=== PATIENT | female | born 2000 | race Caucasian/White ===

== ENCOUNTER 2022-10-15 10:41 | Outpatient (CLI) | payer BC, SELFPAY ==
[2022-10-15 12:07] LABS: Cholesterol* 139 mg/dL (90-199); Glucose* 84 mg/dL (60-115); HDL Cholesterol* 45 mg/dL (>=50); LDL Cholesterol Calculated 79 mg/dL (<100); Triglycerides* 77 mg/dL (40-149)
[2022-10-15 14:01] LABS: Chlamydia DNA Amplified* NOT DETECTED (No Detected); GC DNA Amplified* NOT DETECTED (No Detected)
== END 2022-10-15 10:42 | disposition home or self-care (01) ==
PROVIDERS: PCP Family Medicine; Visit Provider Physician Assistant
DX: Z11.3 Encounter for screening for infections with a predominantly sexual mode of transmission (principal); Z13.1 Encounter for screening for diabetes mellitus; Z13.6 Encounter for screening for cardiovascular disorders
CPT/HCPCS: 80061; 82947; 87491; 87591

== ENCOUNTER 2022-10-21 13:47 | Outpatient (CLI) | payer BC, SELFPAY ==
--- NOTE | 2022-10-21 14:00 | CRLHL7_ITS ---
For Patients: As a result of the Century Cures Act, medical imaging exams and procedure reports are released immediately into your electronic medical record. You may view this report before your referring provider. If you have questions, please contact your health care provider. INDICATION: Pelvic cramping. IUD placement. Assess for intrauterine device location. TECHNIQUE: Transabdominal and transvaginal pelvic ultrasound. FINDINGS: The uterus is anteverted. There is an intrauterine device appropriately positioned. The uterus measures 7.7 x 3.6 x 4.9 cm. The endometrial stripe measures 4 mm transvaginally. Small amount of free pelvic fluid likely physiologic. Normal right ovary measuring 3.8 x 1.9 x 2.1 cm. Normal left ovary measuring 3.4 x 2.2 x 2.5 cm. IMPRESSION: Intrauterine device appropriately positioned. Endometrial stripe of 4 mm. Dictated by Francisco Mccloud MD @ 10/21/2022 4:55:31 PM (Electronically Signed)
== END 2022-10-21 13:48 | disposition home or self-care (01) ==
LOC: US 13:48
PROVIDERS: PCP Family Medicine; Visit Provider Physician Assistant
DX: R10.2 Pelvic and perineal pain (principal)
CPT/HCPCS: 76830; 76856

== ENCOUNTER 2023-01-25 11:27 | Outpatient (CLI) | payer BC, SELFPAY ==
[2023-01-25 16:26] LABS: Chlamydia DNA Amplified* NOT DETECTED (No Detected); GC DNA Amplified* NOT DETECTED (No Detected)
== END 2023-01-25 11:28 | disposition home or self-care (01) ==
PROVIDERS: PCP Family Medicine; Visit Provider Physician Assistant
DX: R10.2 Pelvic and perineal pain (principal); R10.32 Left lower quadrant pain; E66.9 Obesity, unspecified
CPT/HCPCS: 87086; 87491; 87591

== ENCOUNTER 2023-02-02 10:02 | Outpatient (CLI) | payer BC, SELFPAY ==
--- NOTE | 2023-02-02 10:00 | CRLHL7_ITS ---
For Patients: As a result of the Century Cures Act, medical imaging exams and procedure reports are released immediately into your electronic medical record. You may view this report before your referring provider. If you have questions, please contact your health care provider. Indication: LLQ ABD PAIN. R/O STONE Technique: Noncontrast CT abdomen and pelvis. Please note that all CT scans at this facility use dose modulation, iterative reconstruction, and/or weight-based dosing when appropriate to reduce radiation dose to as low as reasonably achievable. Comparison: Pelvic ultrasound 10/21/2022 Findings: Lung bases are clear. Normal noncontrast enhanced liver and spleen. Gallbladder absent. No biliary duct dilation. Pancreas and adrenal glands normal. Normal kidneys, ureters and bladder. No hydronephrosis or hydroureter. No evidence of urinary tract stone. Uterus is retroflexed. IUD in the midline of the uterus. Osseous structures normal. Normal appearance of the ovaries with incidental dominant follicle in the left ovary. No bowel obstruction, free air, free fluid or abscess. No diverticulitis. Normal appendix. No abdominal wall hernia. No adenopathy. Impression: Normal CT of the abdomen and pelvis. No evidence of inflammatory change or urinary tract stone. Please note that all CT scans at this facility use dose modulation, iterative reconstruction, and/or weight-based dosing when appropriate to reduce radiation dose to as low as reasonably achievable. Dictated by Mike Arboleda MD @ 02/02/2023 2:59:27 PM (Electronically Signed)
== END 2023-02-02 10:03 | disposition home or self-care (01) ==
PROVIDERS: PCP Family Medicine; Visit Provider Physician Assistant
DX: R10.32 Left lower quadrant pain (principal)
CPT/HCPCS: 74176

== ENCOUNTER 2023-04-13 07:01 | Emergency (ER) | payer BC, SELFPAY ==
[2023-04-13 07:05] VITALS: BP 111/76; PULSE 81; RESP 18; TEMP 36.8; O2SAT 99; BMI 37.4
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
--- NOTE | 2023-04-13 07:39 | CRLHL7_ITS ---
For Patients: As a result of the Century Cures Act, medical imaging exams and procedure reports are released immediately into your electronic medical record. You may view this report before your referring provider. If you have questions, please contact your health care provider. INDICATION: Right mid pelvic pain TECHNIQUE: Ultrasound pelvis transvaginal for better assessment or to better visualize the endometrium. Real-time sonographic images with spectral and color Doppler imaging of the ovaries were obtained. COMPARISON: None FINDINGS: Uterus: 7.7 x 3.4 x 4.6 cm. Normal echotexture of the myometrium. No masses. Endometrium: Transvaginal imaging was performed to better evaluate the endometrium. Endometrial thickness measures approximately 4 mm. No sign of endometrial mass or fluid. Intrauterine device centered within the endometrial cavity. Right ovary measures 4.1 x 1.8 x 1.8 cm and left ovary measures 3.7 x 1.9 x 2.2 cm. No ovarian or adnexal masses. Normal blood flow is demonstrated in both ovaries. Cul-de-sac: No significant free fluid. IMPRESSION: Unremarkable pelvic ultrasound. Intrauterine device centered within the endometrial cavity. Dictated by Mike Mehta MD @ 04/13/2023 9:05:32 AM (Electronically Signed)
[2023-04-13 07:57] LABS: Appearance Urine Clear (Clear); Bilirubin Urine Negative (Negative); Blood Urine Negative (Negative); Color Urine Yellow (Yellow); Glucose Urine Negative (Negative); Ketones Urine Trace (Negative); Leukocyte Esterase Urine Negative (Negative); Nitrite Urine Negative (Negative); Protein Urine Negative (Negative); Specific Gravity Urine <= 1.005 (1.000-1.030); Urobilinogen Urine 0.2 (0.2-1.0)
[2023-04-13 08:02] LABS: Ur HCG Qualitative* Negative (Negative)
[2023-04-13 08:15] LABS: RBC Urine 0-2 (0-2); WBC Urine 0-2 (0-5)
[2023-04-13 08:44] LABS: Basophils Absolute Auto 0.04 K/uL (0.00-0.30); Basophils Percent Auto 0.4 % (0.0-3.0); Eosinophils Absolute Auto 0.08 K/uL (0.00-0.50); Eosinophils Percent Auto 0.8 % (0.0-7.0); Hematocrit 35.6 % (33.0-51.0); Hemoglobin* 12.4 gm/dL (12.0-16.0); Immature Granulocytes Abs Auto 0.01 K/uL (0.00-0.30); Immature Granulocytes Pct Auto 0.1 %; Lymphocytes Percent Auto 16.5 % (20-44); Mean Corpuscular HGB Conc 35 gm/dL (32-36); Mean Corpuscular Hemoglobin 32 pg (26-34); Mean Corpuscular Volume 91 fL (80-100); Monocytes Percent Auto 8.6 % (0.0-11.0); Neutrophils Percent Auto 73.6 % (42.0-72.0); Platelet Count* 299 K/uL (140-440); RDW Coefficient of Variation % 11.8 % (11.5-15.5); Red Blood Count 3.91 m/uL (4.00-5.20); White Blood Count* 10.04 K/uL (4.50-11.00)
[2023-04-13 08:50] LABS: Slide Review Reflex No
[2023-04-13] MEDS: IBUPROFEN 400 MG TABLET 800 MG PO (08:56)
[2023-04-13 08:58] LABS: Albumin* 4.3 g/dL (3.3-5.0); Chloride* 105 mmol/L (96-114)
[2023-04-13 08:59] LABS: Potassium* 3.3 mmol/L (3.6-5.1); Sodium* 139 mmol/L (135-149)
[2023-04-13 09:01] LABS: Creatinine* 0.7 mg/dL (0.5-1.5); Est. Creatinine Clearance* 92.71; Estimated Glomerular Filt Rate 123 ml/min
[2023-04-13 09:02] LABS: Alanine Aminotransferase* 61 U/L (4-35); Alkaline Phosphatase* 80 U/L (40-150); Aspartate Amino Transferase* 41 U/L (12-35); Bilirubin Direct* 0.1 mg/dL (0.0-0.5); Bilirubin Total* 0.8 mg/dL (0.1-1.5); Blood Urea Nitrogen* 11 mg/dL (5-24); Calcium* 8.9 mg/dL (8.4-10.6); Carbon Dioxide* 23 mmol/L (20-32); Glucose* 102 mg/dL (60-115); Total Protein* 7.4 g/dL (6.0-8.3)
[2023-04-13 09:05] LABS: C Reactive Protein* 1.2 mg/dL (0.5-1.0)
[2023-04-13 09:46] VITALS: BP 109/68; PULSE 71; RESP 20; TEMP 36.1; O2SAT 99
== END 2023-04-13 09:51 | disposition home or self-care (01) ==
PROVIDERS: Emergency Provider Family Medicine; PCP Family Medicine
DX: R10.2 Pelvic and perineal pain (principal)
CPT/HCPCS: 36415; 76830; 80048; 80076; 81001; 81025; 85025; 86140; 99284; A9270

== ENCOUNTER 2023-04-26 08:54 | Outpatient (CLI) | payer BC, SELFPAY | END 2023-04-26 08:55 | disposition home or self-care (01) | LOC: NFLDREF 04-27 10:17 | PROVIDERS: PCP Family Medicine; Referring Provider Family Medicine; Visit Provider Family Medicine | DX: R30.0 Dysuria (principal); R10.2 Pelvic and perineal pain | CPT/HCPCS: 87086; 87186 ==

== ENCOUNTER 2024-06-10 07:04 | Emergency (ER) | payer BC, SELFPAY ==
[2024-06-10 07:08] VITALS: BP 120/88; PULSE 89; RESP 16; TEMP 36.3; O2SAT 96; BMI 38.8
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
== END 2024-06-10 09:12 | disposition home or self-care (01) ==
PROVIDERS: Emergency Provider Emergency Medicine; PCP Family Medicine
DX: R05.9 Cough, unspecified (principal)
CPT/HCPCS: 99282; 99283

== ENCOUNTER 2024-06-21 13:45 | Outpatient (CLI) | payer BC, SELFPAY ==
--- OUTSIDE RECORDS SUMMARY | 2024-06-21 13:50 | XMS_ITS | Clinical Summary ---
Author Organization [facility] Address [place], [place] [address] Care Team Providers Care Marketing Operations Consultant Name Role Phone DevinRuthann churchill LUC Primary Care Provider [phone] Allergies No known active allergies Medications Medication Sig Dispensed Refills Start Date End Date Status ranitidine (ZANTAC) 300 mg tabletIndications:G astroesophageal reflux disease, esophagitis presence not specified Take 1 tablet by mouth once daily. 90 tablet 1 07/05/2018 Active colestipoL (COLESTID) 1 gram tablet 12/25/2021 Active valACYclovir (VALTREX) 1 gram tablet Take 1 g by mouth once daily. 12/13/2021 Active acetaminophen (TYLENOL) 325 mg tablet Every 6-8 Hours as needed Active ibuprofen (ADVIL; MOTRIN) 600 mg tablet Every 6 Hours as needed Active fluconazole (DIFLUCAN) 150 mg tabletIndications:V aginal yeast infection 150mg PO x1. Repeat in 3 days if needed. 2 Tablet 07/29/2022 Active famotidine (PEPCID) 20 mg tablet Take 20 mg by mouth two times daily. 10/20/2022 Active pyridoxine, vitamin B6, (VITAMIN B6) 25 mg tabletIndications:V omiting affecting Take 1 Tablet (25 mg) by mouth three times daily. 15 Tablet 06/26/2023 Active doxylamine (UNISOM) 25 mg tabletIndications:V omiting affecting Take 0.5 Tablets (12.5 mg) by mouth 4 times daily if needed for Sleep (vomiting in ). 15 Tablet 06/26/2023 Active lansoprazole (PREVACID) 15 mg capsule 02/12/2023 Active ondansetron (ZOFRAN ODT) 8 mg disintegrating tablet 07/01/2023 Active trimethoprim-sulfam ethoxazole, 160-800 mg, (BACTRIM DS, SEPTRA DS) tab Take 1 Tablet by mouth two times daily. 04/26/2023 Active benzonatate (TESSALON) 100 mg capsuleIndications: Cough, unspecified type Take 1 Capsule (100 mg) by mouth every 4 hours if needed for Cough. 25 Capsule 05/31/2024 Active cetirizine (ZYRTEC) 10 mg tabletIndications:C ough, unspecified type Take 1 Tablet (10 mg) by mouth once daily. 30 Tablet 05/31/2024 Active fluticasone (50 mcg per actuation) nasal solution (FLONASE)Indication s:Cough, unspecified type Inhale 1 [place] into affected nostril(s) once daily. 16 g 05/31/2024 Active fluticasone (50 mcg per actuation) nasal solution (FLONASE)Indication s:Cough, unspecified type Inhale 1 [place] into affected nostril(s) once daily. 16 g 05/31/2024 4 Discontinued cetirizine (ZYRTEC) 10 mg tabletIndications:C ough, unspecified type Take 1 Tablet (10 mg) by mouth once daily for 30 days. 30 Tablet 05/31/2024 4 Discontinued benzonatate (TESSALON) 100 mg capsuleIndications: Cough, unspecified type Take 1 Capsule (100 mg) by mouth every 4 hours if needed for Cough. 25 Capsule 05/31/2024 4 Discontinued Active Problems Problem Noted Date Diagnosed Date Elevated blood pressure read ing without diagnosis of hypertension 08/07/2017 Low vitamin D level 05/28/2017 Refusal of blood transfusion s as patient is Yazdanism 02/01/2017 History of herpes genitalis 12/16/2016 Overview (06/27/2017): Will need to increase acyclovir to three times daily at 36 weeks Gluten-sensitive enteropathy 11/09/2016 Overview (11/09/2016): testing all negative including blood testing, endoscopy 12/01/15 and colonoscopy responded well to gluten free diet Tenosynovitis, de Ceelstinevain 11/28/2014 GERD (gastroesophageal reflux disease) 5 Resolved Problems Problem Noted Date Diagnosed Date Resolved Date (normal spontaneous vaginal delivery) 08/06/2017 08/28/2018 Supervision of high risk pre gnancy due to social problems in third trimester 05/28/201708/13 Overview (06/27/2017): Estimated Date of Delivery: 08/20/17 by LMP c/w 11 week ultrasound - O Rh Positive - GBS: (weeks) - Rubella: immune - Infections: HSV (NEEDS ACYCLOVIR AFTER 36 weeks) - One hour glucose: 84 - Hgb: 12.1 on 05/24/17 (27 weeks) - Tdap: done at 27 weeks - US for dates: 11w5d - Screening US done at [facility] at 21+1w [place]. 04/06/17. Normal anatomy screen. Male gender. Posterior placenta - Desires circumcision - Planning feeding - Post- contraception: - Labor/Delivery request: Marijuana smoker, continuous 11/09/2016 08/13/[address] 01/20/2016 7 Overview (01/20/2016): placed 10/30/14 Vaginal delivery 08/20/2014 01/20/2016 Supervision of normal first teen 03/08/2014 01/20/2016 Overview (08/05/2014): Girl FOB: Gerardo MARTÍN 08/26/14, by LMP and US Complications: teen , transferred care at 29 weeks QSM neg; Rubella Immune; GC/Chlam neg; RPR neg; HIV neg; HbsAg neg; O pos, ab screen neg; Hgb 11.7 ; Glucola 84 GBS neg US on 03/22/14 Tdap and Flu on 06/13/14 Open to epidural, but would like to see how things go. Would like Gerardo to hold the baby as soon as possible. Baby's physician - Dr. Hall Encounters Date Type Department Care Team Description 05/31/2024 2:29 AM CDT - 05/31/2024 3:51 AM CDT Emergency [facility] [address] [facility] [place] [address] Soo Landa DO Cough, unspecified type (Primary Dx) Discharge Disposition: Home Self Care 05/31/2024 Travel from Last 3 Months Immunizations Name Administration Dates Next Due DTaP 03/07/2002, 0,01/13/1999,07/08,1998 HIB PRP-T (ActHIB,Hiberix) 02/12/2000,,1998,04/22,1998 Hepatitis A (Peds) 03/11/2009 Hepatitis A (Peds),Unspecified 08/13/2010,2008 Hepatitis B (Peds) 01/13/1999,1998, 998 Human Papilloma Virus Vaccine 09/29/2009, 009,03/11/2009 Inactivated Polio Vaccine 11/08/2013,,02/24/1999,07/08,1998 Influenza Virus, Unspecified 08/09/2011,08/13/20 10 Influenza, IIV3 (Age >=3 years) 11/08/2013 Influenza, IIV4 06/21/2018, 7,11/04/2016,06/19,06/13/2014,11/08/2013 Influenza,LAIV4 Live Intrana cecy (Flumist) 07/13/2012 MENINGOCOCCAL VACCINE 2 VIAL 2MO-55YO (MENVEO) 06/19/2015 MMR 06/01/2007,02/12/2000 MMRV 06/01/2007 Meningococcal Vaccine (Menactra) 03/11/2009 Tdap 05/24/2017,06/13/2014,03/11/2009 Varicella Vaccine 09/13/2006,02/24/1999 Family History Medical History Relation Name Comments Other Father Murdered Psychiatric illness Mother Drug abu se Good Health Sister Carisa Relation Name Status Comments Father Mother Sister Carisa Social History Tobacco Use Types Packs/Day Years Used Date Smoking Tobacco: Former Cigarettes 0.3 3 0 10/27/2013 - 10/27/2016 Smokeless Tobacco: Never Tobacco Cessation:Counseling Given: Not Answered Alcohol Use Standard Drinks/Week Comments No 0 (1 standard drink = 0.6 oz pur e alcohol) PHQ-2 Answer Date Recorded PHQ-2 Score 2 11/28/2018 Social Connections Answer Date Recorded Frequency of Communication with Friends and Fami ly Not on file 09/26/2021 Financial Resource Strain Answer Date R ecorded Difficulty of Paying Living Expenses Not on file 09/26/2021 Difficulty of Paying Living Expenses Not on file 09/26/2021 Sex and Gender Information Value Date Recorded Sex Assigned at Not on file Gender Identity Not on file Sexual Orientation Not on file Obstetrics History Para Term AB IAB SAB Ectopic Multiple Livin g Live Births 4 2 2 1 1 Date Outcome GA Total Labor Labor/2nd/3rd Weight Sex Type Anes PTL Michelle A1 A5 Name Clin 2013 Term 39w 0d 3.2 kg (7 lb 1 oz) F Vag-S pont Epidur al N Livin g 9 9 BG CHYNA(Nestor THOMAS ) Delivery Location:[facility] 2016 Term 38w 0d 3.11 kg (6 lb 13.7 oz) M Vag-S pont None N 5 9 VIVIAN Santoyo,BB DARION Barron Complications:None Delivery Location:[facility] Comments:Brought to est. Dad cut cord. Brought to warmer for assessment. Last Filed Vital Signs Vital Sign Reading Time Taken Comments Blood Pressure 135/87 05/31/2024 3:50 AM CDT Pulse 89 05/31/2024 3:50 AM CDT Temperature 36.9 ??C (98.4 ??F) 05/31/2024 2:34 AM CD T Respiratory Rate 16 05/31/2024 2:34 AM CDT Oxygen Saturation 99% 05/31/2024 3:50 AM CDT Inhaled Oxygen Concentration - - Weight 96.2 kg (212 lb) 05/31/2024 2:34 AM CDT Height 152.4 cm (5') 05/31/2024 2:34 AM CDT Body Mass Index 41.4 05/31/2024 2:34 AM CDT Plan of Treatment Health Maintenance Due Date Last Done Comments BMI (ht and wt on same day) for age 18+ 08/28/2019 08/28/2018, 07/26/2018, 03/27/2018, Additional history exists Depression screening for age 12+ 08/28/2019 08/28/2018, 08/28/2018, 07/27/2018, Additional history exists COVID-19 vaccine series (2022- season) 2024 Influenza for age 9-49 05/27/2024 8, 05/24/2017, 11/04/2016, Additional history exists Pap test for age 21-65 10/15/2025 10/15/2022, 2018 Tetanus booster 05/24/2027 05/24/2017, 05/27, 03/11/2009 HPV series for age 9-26 Completed 09/29/19 10, 05/16/2009, 03/11/2009 Hepatitis C screening for age 18-79 Completed 11/04/2016 HIV for age 15-65 Completed 03/01/2017, , 03/11/2016, Additional history exists Tdap Completed 05/24/2017, 05/27, 03/11/2009 Pneumococcal series for age 6-64 Aged Out No longer eligible based on patient's age to complete this topic Procedures Procedure Name Priority Date/Time Associated Diagnosis Comments XR CHEST 2 VIEWS PA AND LATERAL STAT 05/31/2024 2:54 AM CDT RANGE AIDE THIN PREP PAP SCREEN IMAGED Routine 10/15/2022 11:00 AM WINDOW SASH INSTALLER ANTI HIV 1/2 Routine 03/01/2017 2:21 PM CDT , unspecified gestational age ANTI HCV Routine 11/04/2016 12:08 PM WINDOW SASH INSTALLER Screening examination for venereal disease from Last 3 Months or Most Recently Relevant to Health Maintenance Results * XR CHEST 2 VIEWS PA AND LATERAL (05/31/2024 2:54 AM CDT) Anatomical Region Laterality Modality CHEST, THORAX, Lung, HEART Digit al Radiography 05/31/2024 3:21 AM CDT Impressions 05/31/2024 3:21 AM CDT No acute cardiopulmonary abnormality. Dictated by Issac Dominguez MD @ 05/31/2024 3:21:14 AM (Electronically Signed) Narrative 05/31/2024 3:21 AM CDT For Patients: ??As a result of the Cures Act, medical imaging exams and procedure reports are released immediately into your electronic medical record. ??You may view this report before your referring provider. ??If you have questions, please contact your health care provider. INDICATION: Cough, shortness of breath. TECHNIQUE: Chest 2 views. COMPARISON: 01/13/2022. FINDINGS: Cardiovascular and mediastinum: Heart size and vasculature are normal in caliber and appearance. Lungs and pleural spaces: Lungs are clear. No sign of infiltrate or mass. No sign of pleural effusion. No pneumothorax. ?? Bones and soft tissues: No significant findings. Procedure Note Issac Dominguez MD - 05/31/2024 For Patients: As a result of the Cures Act, medical imagingexams and procedure reports are released immediately into your electronicmedical record. You may view this report before your referring provider.If you have questions, please contact your health care provider. INDICATION: Cough, shortness of breath. TECHNIQUE: Chest 2 views. COMPARISON: 01/13/2022. FINDINGS: Cardiovascular and mediastinum: Heart size and vasculature are normal incaliber and appearance. Lungs and pleural spaces: Lungs are clear. No sign of infiltrate or mass.No sign of pleural effusion. No pneumothorax. Bones and soft tissues: No significant findings. IMPRESSION: No acute cardiopulmonary abnormality. Dictated by Issac Dominguez MD @ 05/31/2024 3:21:14 AM (Electronically Signed) Soo Brown DO GENER AL IMAGING * RANGE AIDE THIN PREP PAP SCREEN IMAGED (10/15/2022 11:00 AM WINDOW SASH INSTALLER) Case Report Gynecologic Cytology Report ? Case: [id number] ? Authorizing Provider: ??Ruthann Nelson PA-C ?Collected: ? 10/15/2022 1100 ? Ordering Location: ? [facility] ?Received: ?10/18/2022 1139 ? First Screen: ?Tylor Cain ? Specimen: ?RANGE AIDE ThinPrep Vial Screening, Cervical ? 10/26/2022 2:53 PM WINDOW SASH INSTALLER [facility] [employer] LABORAT[facility]- ENTRAL LABORATORY INTERPRETATION/ RESULT NEGATIVE FOR INTRAEPITHELIAL LESION OR MALIGNANCY (NIL) (none) 10/26/2022 2:53 PM WINDOW SASH INSTALLER [facility] [employer] [facility]- ENTRAL LABORATORY IMEN ADEQUACY Satisfactory for evaluation Endocervical component present 10/26/2022 2:53 PM WINDOW SASH INSTALLER [facility] [employer] LABORATORY-C ENTRAL LABORATORY HPV REQUEST HPV not requested 2022 2:53 PM WINDOW SASH INSTALLER [facility] [employer] LABORATORY-C ENTRAL LABORATORY Last Pap Date 06/08/2019 10/26/2022 2:53 PM WINDOW SASH INSTALLER [facility] LABORAT[facility]-C ENTRAL LABORATORY Last Pap Result NIL 2:53 PM WINDOW SASH INSTALLER [facility] [employer] LABORAT[facility]- ENTRAL LABORATORY Abnormal Pap or [place] Bx in last 5 years No 10/26/2022 2:53 PM WINDOW SASH INSTALLER [facility] [employer] [facility]- ENTRAL LAB[facility]ATORY Menstrual Status Regular Periods 10/26/2022 2:53 PM WINDOW SASH INSTALLER [facility] ENTRID LABORAT[facility] [place] Bx Done Today No 10/26/2022 2:53 PM WINDOW SASH INSTALLER [facility] Additional Information 10/26/2022 2:53 PM WINDOW SASH INSTALLER [facility] Comment: Interpreted at [facility] - [address], [place] [address] Automated Review Successful 10/26/2022 2:53 PM WINDOW SASH INSTALLER [facility] Comment:Specimen processed s uccessfully by automated sweat box attendant device, ThinPrep Imaging System, [employer] Note The pap test is a screening technique, not a diagnostic procedure. It is used primarily to screen for squamous cancers and precursor lesions. Published studies have shown that it is subject to both false negative and false positive results. The pap test should not be used as the sole means to diagnose or exclude pre-malignant and malignant lesions. 10/26/2022 2:53 PM WINDOW SASH INSTALLER [facility] Other (Cervical) 10/15/2022 11:00 AM WINDOW SASH INSTALLER 10/18/2022 11:39 AM WINDOW SASH INSTALLER Ruthann Nelson PA-C PATHOLOGY/CYTOLOGY [facility] [address] [place] [address], * ANTI HIV 1/2 (03/01/2017 2:21 PM CDT) HIV-1/HIV-2 ANTIBODY Non-Reacti ve Non-Reacti ve 03/02/2017 12:12 AM CDT [facility] TR[facility] LABORAT[facility] Blood BLOOD SPECIMEN / Unknown Venipuncture / Unknown 03/01/2017 2:21 PM CDT 03/01/2017 2:24 PM CDT Narrative [facility] - 03/02/2017 12:12 AM CDT HIV-1 p24 and HIV-1/HIV-2 Ab not detected Coral Hall MD [facility] [address] [place] [address], [place] * ANTI HCV (11/04/2016 12:08 PM WINDOW SASH INSTALLER) HEPATITIS C ANTIBODY Non-Reacti ve Non-Reacti ve 11/04/2016 8:53 PM WINDOW SASH INSTALLER [facility] Blood BLOOD SPECIMEN / Unknown Venipuncture / Unknown 11/04/2016 12:08 PM WINDOW SASH INSTALLER 11/04/2016 12:08 PM WINDOW SASH INSTALLER Narrative [facility] - 11/04/2016 8:53 PM WINDOW SASH INSTALLER Antibodies to HCV not detected; does not exclude the possibility of exposure to HCV. Carissa Blake NP [facility] [address] [place] [address], [place] from Last 3 Months or Most Recently Relevant to Health Maintenance Advance Directives Documents on File Type Date Recorded Patient Pug Machine Operator Expl anation Power of Wireworker Supervisor 07/26/2014 2:36 PM KINGS R OF QUICK MIXER OPERATOR, 07/26/14 * Full Code (Latest Code Status on File) Date Activated Date Inactivated Comments 08/06/2017 4:32 AM 08/07/2017 3:55 PM * Full Code Date Activated Date Inactivated Comments 08/05/2017 11:36 PM 08/06/2017 4:32 AM * Full Code Date Activated Date Inactivated Comments 08/05/2017 11:07 PM 08/05/2017 11:36 PM * Full Code Date Activated Date Inactivated Comments 08/05/2017 8:49 AM 08/05/2017 2:20 PM * Full Code Date Activated Date Inactivated Comments 06/27/2017 2:40 PM 06/27/2017 8:09 PM Care Teams Marketing Operations Consultant Relationship Specialty Start Date End Date Ruthann Nelson PA-C [address] [place] [id number] PCP - General Physician Tubing Mill Setter 01/19/19
== END 2024-06-21 13:46 | disposition home or self-care (01) ==
LOC: NFLDREF 13:46
PROVIDERS: PCP Family Medicine; Visit Provider Family Medicine
DX: R05.9 Cough, unspecified (principal); Z01.84 Encounter for antibody response examination
CPT/HCPCS: 86615; 87015

== ENCOUNTER 2025-03-19 08:40 | Outpatient (CLI) | payer SELFPAY | END 2025-03-19 08:41 | disposition home or self-care (01) | LOC: NFLDREF 03-20 15:45 | PROVIDERS: PCP Family Medicine; Referring Provider Family Medicine; Visit Provider Family Medicine | DX: Z13.1 Encounter for screening for diabetes mellitus (principal); Z13.6 Encounter for screening for cardiovascular disorders | CPT/HCPCS: 80061; 82947 ==